=== PATIENT | female | born 1980 | race Caucasian/White ===

== ENCOUNTER 2016-08-29 12:56 | Emergency (ER) | payer SELFPAY ==
--- NOTE | 2016-08-29 13:02 | ED.PDOC ---
History of Present Illness - General Chief Complaint: Cardiovascular Problem Stated Complaint: chest pain Time Seen by Provider: 08/29/16 13:01 Source: patient Exam Limitations: no limitations - History of Present Illness Initial Comments: Gail Reece 35 y/o female stated she had onset of sharp hurting chest pain whe she started work at about 6 am today aggravated by deep breathing and coughing.Stated got worse decide to come to er.No diaphoresis nausea vomiting.No sob.no hbp,no dyslipedemia Timing/Duration: 4-6 hours, constant Severity/Quality: moderate, sharp Location: central Chest Pain Radiation: no radiation Activities at Onset: rest Prior Chest Pain/Cardiac Workup: no prior chest pain Worsening Factors: nothing Nitro Today/Relief: no nitro taken today, provided by ED Aspirin Treatment Today: no aspirin today, provided by ED Allergies/Adverse Reactions: Allergies Tramadol Allergy (Mild, Verified 08/29/16 15:24) itching Penicillins Allergy (Unknown, Verified 02/12/12 13:56) Home Medications: Ambulatory Orders Permethrin [Elimite] 60 gm EX ONCE #1 tube 07/29/14 raNITIdine HCL [Zantac] 0 mg PO BID #60 tab 08/29/16 Review of Systems - Review of Systems Constitutional: States: no symptoms reported EENTM: States: no symptoms reported Respiratory: States: no symptoms reported Cardiology: States: see HPI Gastrointestinal/Abdominal: States: no symptoms reported Genitourinary: States: no symptoms reported Musculoskeletal: States: no symptoms reported Skin: States: no symptoms reported Neurological: States: no symptoms reported Past Medical History (General) - Patient Medical History Hx Seizures: No Hx Stroke: No Hx Dementia: No Hx Asthma: No Hx of COPD: No Hx Cardiac Disorders: No Hx Congestive Heart Failure: No Hx Pacemaker: No Hx Hypertension: No Hx Thyroid Disease: No Hx Diabetes: No Hx Gastroesophageal Reflux: No Hx Renal Disease: No Hx Cancer: No Hx of HIV: No Hx Hepatitis C: No Hx MRSA: No Surgical History: other - c section,btl - Vaccination History Hx Tetanus, Diphtheria Vaccination: Yes Hx Influenza Vaccination: No Hx Pneumococcal Vaccination: No - Social History Hx Tobacco Use: Yes Hx Chewing Tobacco Use: No Hx Alcohol Use: No Hx Substance Use: Yes Hx Substance Use Treatment: No Hx Depression: Yes Hx Physical Abuse: No Hx Emotional Abuse: No Hx Suspected Abuse: No - Activities of Daily Living Patient Lives Alone: No - family - Female History Patient : No Family Medical History - Family History Mother Family History: No Known Living Status: Still Living Hx Family Hypertension: Yes - dad Physical Exam - Physical Exam General Appearance: Alert, No apparent distress Eyes, Ears, Nose, Throat Exam: PERRL/EOMI, normal ENT inspection, TMs normal, pharynx normal Neck: non-tender, full range of motion, supple Respiratory: chest non-tender, lungs clear, normal breath sounds Cardiovascular/Chest: normal peripheral pulses, regular rate, rhythm, no murmur Peripheral Pulses: radial,right: 1+, radial,left: 1+ Gastrointestinal/Abdominal: normal bowel sounds, non tender, soft, no organomegaly Extremity: normal range of motion, non-tender, normal inspection, no calf tenderness Neurologic: alert, normal mood/affect, oriented x 3 Skin Exam: normal color, warm/dry Lymphatic: no adenopathy Progress - Progress Progress: 08/29/16 14:16 Vital Signs - 8 hr 08/29/16 12:58 Temperature 97.3 F L Pulse Rate [ 69 left brachial] Respiratory 20 Rate Blood Pressure 136/91 [left brachial] O2 Sat by Pulse 97 Oximetry 08/29/16 15:28 Stated felt better no longer having symptoms of chest pain ,streaming on her cell phone - Results/Orders Results/Orders: Vital Signs - 8 hr 08/29/16 12:58 Temperature 97.3 F L Pulse Rate [ 69 left brachial] Respiratory 20 Rate Blood Pressure 136/91 [left brachial] O2 Sat by Pulse 97 Oximetry 08/29/16 13:04 EKG Assessment ONCE 08/29/16 13:08 IV Care:Saline Lock per Protoc QSHIFT 08/29/16 13:15 EKG STAT Laboratory Results - last 24 hr 08/29/16 08/29/16 08/29/16 13:04 13:15 13:15 WBC 6.2 RBC 4.38 Hgb 13.0 Hct 39.0 MCV 89.1 MCH 29.7 MCHC 33.3 RDW 13.4 Plt Count 235 MPV 8.5 Absolute Neuts (auto) 3.30 Absolute Lymphs (auto) 2.10 Absolute Monos (auto) 0.60 Absolute Eos (auto) 0.10 Absolute Basos (auto) 0.00 Neutrophils % 53.2 Lymphocytes % 34.2 Monocytes % 9.5 H Eosinophils % 2.4 Basophils % 0.7 PT 11.2 INR 0.990 PTT (SP) 29.1 D-Dimer, Quantitative < 200 Sodium 138 Potassium 3.9 Chloride 103 Carbon Dioxide 27 Anion Gap 11.9 L BUN 13 Creatinine 0.65 BUN/Creatinine Ratio 20.0 Random Glucose 108 H Serum Osmolality 276.3 Calcium 9.2 Magnesium 1.9 Total Bilirubin 0.3 Direct Bilirubin < 0.1 Indirect Bilirubin 0.2 AST 18 ALT 20 Alkaline Phosphatase 63 Creatine Kinase 164 H CK-MB (CK-2) 2.9 CK-MB (CK-2) % Not Reportable Troponin I < 0.02 Serum Total Protein 7.5 Albumin 4.1 Serum HCG, Qual Urine Color Urine Appearance Urine pH Ur Specific [place] Urine Protein Urine Glucose (UA) Urine Ketones Urine Blood Urine Nitrite Urine Bilirubin Urine Urobilinogen Ur Leukocyte Esterase Urine RBC Urine WBC Ur Epithelial Cells Urine Bacteria Urine Opiates Screen Negative Urine Barbiturates Negative Ur Phencyclidine Scrn Negative U Amphetamin/Meth Scrn Negative U Benzodiazepines Scrn Negative U Cocaine Metab Screen Negative U Cannabinoids Screen Negative 08/29/16 08/29/16 08/29/16 13:15 14:12 14:25 WBC RBC Hgb Hct MCV MCH MCHC RDW Plt Count MPV Absolute Neuts (auto) Absolute Lymphs (auto) Absolute Monos (auto) Absolute Eos (auto) Absolute Basos (auto) Neutrophils % Lymphocytes % Monocytes % Eosinophils % Basophils % PT INR PTT (SP) D-Dimer, Quantitative Sodium Potassium Chloride Carbon Dioxide Anion Gap BUN Creatinine BUN/Creatinine Ratio Random Glucose Serum Osmolality Calcium Magnesium Total Bilirubin Direct Bilirubin Indirect Bilirubin AST ALT Alkaline Phosphatase Creatine Kinase CK-MB (CK-2) CK-MB (CK-2) % Troponin I < 0.02 Serum Total Protein Albumin Serum HCG, Qual Negative Urine Color Yellow Urine Appearance Clear Urine pH 5.0 Ur Specific [place] >= 1.030 Urine Protein Negative Urine Glucose (UA) Negative Urine Ketones Negative Urine Blood Small H Urine Nitrite Negative Urine Bilirubin Negative Urine Urobilinogen 0.2 Ur Leukocyte Esterase Negative Urine RBC 0-1 Urine WBC 0 Ur Epithelial Cells 30-40 Urine Bacteria 0 Urine Opiates Screen Urine Barbiturates Ur Phencyclidine Scrn U Amphetamin/Meth Scrn U Benzodiazepines Scrn U Cocaine Metab Screen U Cannabinoids Screen - EKG/XRAY/CT EKG: Sinus, nonspecific ST T wave Chg Comments: Heart rate 70 XRAY: chest - no acute abnormality Departure - Departure Clinical Impression: Chest pain Qualifiers: Chest pain type: chest pain on breathing Qualified Code(s): R07.1 - Chest pain on breathing Time of Disposition: 15:30 Disposition: Discharge to Home or Self Care Condition: Fair Instructions: DI for Atypical Chest Pain, DI for Chest Pain Referrals: Philip Hemphill MD [Primary Care Provider] - 1-2 Weeks Prescriptions: raNITIdine HCL [Zantac] 0 mg PO BID #60 tab Home Medications: Ambulatory Orders Permethrin [Elimite] 60 gm EX ONCE #1 tube 07/29/14 raNITIdine HCL [Zantac] 0 mg PO BID #60 tab 08/29/16 Additional Instructions: RETURN TO EMERGENCY ROOM NEEDED;FOLLOW WITH primary md today call for appointment for cardiology referral;Excuse from work today 08/29/2016 return to work without restrictions 08/30/2016
[2016-08-29] MEDS ORDERED: NITROGLYCERIN 0.4 MG 25 EA TAB SL ONE (13:04)
[2016-08-29] MEDS ORDERED: ASPIRIN (CHEWABLE) 81 MG TAB PO ONE (13:04)
--- NOTE | 2016-08-29 13:29 | RAD ---
EXAM DESCRIPTION: Chest,1 View CLINICAL HISTORY: pain COMPARISON: None available TECHNIQUE: AP portable chest FINDINGS: The lungs are clear. There is no infiltrate or effusion. The heart is normal size. IMPRESSION: Normal portable chest Electronically signed by: Everett Child MD 08/29/2016 1:28 PM CDT
[2016-08-29] MEDS ORDERED: LACTATED RINGERS 1,000 ML IVS ONE (13:32)
[2016-08-29 13:56] VITALS: TEMP 97.3
[2016-08-29] MEDS ORDERED: LIDOCAINE VIS-MYLANTA 30 ML UD PO ONE (14:03)
[2016-08-29] MEDS ORDERED: SIMVASTATIN 20 MG TAB ONE (14:17)
[2016-08-29] MEDS ORDERED: SIMVASTATIN 20 MG TAB PO ONE (14:36)
[2016-08-29] MEDS ORDERED: SUCRALFATE 1 GM TAB PO ONE ×2 (14:40→14:44)
[2016-08-29 15:58] VITALS: BP 121/77; O2SAT 98
[2016-08-29] MEDS ORDERED: SIMVASTATIN 20 MG TAB PO SCH (21:00)
== END 2016-08-29 15:58 | disposition home or self-care (01) ==
LOC: ER 12:56
DX: R07.1 Chest pain on breathing (principal); Z88.6 Allergy status to analgesic agent; Z88.0 Allergy status to penicillin; Z87.891 Personal history of nicotine dependence
CPT/HCPCS: 36415; 71010; 80048; 80076; 80307; 81001; 82550; 82553; 84484; 84703; 85025; 85379; 85610; 85730; 93005; J7120

== ENCOUNTER → 2018-03-20 | Outpatient (CLI) | payer OTHER ==
--- NOTE | 2018-03-22 14:45 | MAM ---
EXAM DESCRIPTION: 3D Screening BILATERAL : Digital Mammography. CLINICAL HISTORY: 37 years Female . SCREENING. No complaints. No personal history of breast cancer. Remote family history of breast cancer. Childbirth. Premenopausal. No HRT. Lifetime risk of developing breast cancer (Tyrer-Cuzick model)(%): 8.1. COMPARISON: Baseline study at this facility. No prior reports available. TECHNIQUE: Bilateral CC and MLO projection full-field images, digital tomosynthesis mammographic technique. Bilateral digital 2-D full-field MLO images. CAD not available for tomosynthesis or 2-D images. FINDINGS: The breast parenchymal density pattern is: Heterogeneously dense breast tissue, which may obscure small masses. No skin thickening or nipple retraction. Left axillary lymph nodes. Bilateral solitary microcalcifications. Focal asymmetry versus mass density anterior third of the lower inner quadrant of the left breast at the 7:00 position, 6 cm from the nipple. Mass density in the anterior third or middle third of the right breast laterally at the 8:30 position, 6 cm from the nipple. IMPRESSION: BI-RADS CATEGORY: 0 - INCOMPLETE- Need additional imaging evaluation. FOLLOW-UP: Recall for additional imaging: Bilateral targeted breast ultrasound on the regions of interest. Possible diagnostic digital bilateral images if indicated by ultrasound findings.. Written communication concerning the IMPRESSION and Follow-up, will be mailed to the patient and referring health care provider. Electronically signed by: Long Garcia MD 03/22/2018 2:43 PM FRAUD ANALYST
== END ==
LOC: MAMMO 14:05
PROVIDERS: ATTEND General Practice
DX: Z12.31 Encounter for screening mammogram for malignant neoplasm of breast (principal)

== ENCOUNTER → 2018-07-29 | Outpatient (CLI) | payer OTHER ==
--- NOTE | 2018-07-30 12:42 | US ---
EXAM DESCRIPTION: Breast,Bilateral: Ultrasound CLINICAL HISTORY: 37 yearsFemaleABNORMAL MAMMO. Bilateral breasts. COMPARISON: Bilateral screening digital breast tomosynthesis 03/20/2018. TECHNIQUE: Transcutaneous scanning of the bilateral breasts utilizing perales-scale and Doppler modes. Scanning performed by the trapeze artist and Dr. Garcia. FINDINGS: Ultrasound: Scanning of the lateral right breast anterior middle third. Combination of fatty and fibroglandular echotextures. Hypoechoic mass versus thick-walled cyst, 8:30 sector, 6 cm from the nipple. Lobulated and circumscribed margins. Wider than tall orientation and mixed posterior acoustic features. 6.2 x 4.1 x 6.2 mm with no vascularity. At the 10:00 position, is a hypoechoic structure with eccentric echogenic hilum and circumscribed and lobulated margins measuring 5.6 x 8.8 x 2.4 mm with vascularity of the echogenic hilum. Consistent with a lymph node. Left breast: Scanning of the anterior lower inner quadrant. Mixture of fibroglandular and fibrocystic and fatty tissues. At the 7:00 position 6 cm from the nipple is an elongated complex structure which is hypoechoic, anechoic, and isoechoic with the surrounding soft tissues. Measurements are 2.5 x 1.9 x 0.7 cm and not vascular. Could represent complex of lymph nodes, ducts, or old fibroadenomas. Mixed posterior acoustic features, but no shadowing. IMPRESSION: BI-RADS CATEGORY: 3 - PROBABLY BENIGN. Management: Short interval (6-month) follow-up with bilateral diagnostic mammography and targeted bilateral breast ultrasound.. The FINDINGS and the FOLLOW-UP plan were reviewed in person with the patient after the examination. Written communication explaining the IMPRESSION and FOLLOW-UP will be mailed to the patient and referring care provider. Electronically signed by: Long Garcia MD 07/30/2018 12:40 PM CDT
== END ==
LOC: US 15:00
PROVIDERS: ATTEND General Practice
DX: R92.8 Other abnormal and inconclusive findings on diagnostic imaging of breast (principal)